=== PATIENT | female | born 1985 | race Caucasian/White ===

== ENCOUNTER → 2017-12-11 | Outpatient (CLI) | payer OTHER ==
[~2017-12-11] MED LIST: ALB18R INH; BARIUM SULFATE 176 GM BTL PO ONE; BARIUM SULFATE 340 GM POWD ONE; DEXL60CA6 PO; RANI-366 PO; [UNRECOGNIZED DRUG - SUPPLY]
--- NOTE | 2017-12-11 12:27 | RADIOLOGY IMAGING REPORT ---
FACILITY: [facility] PATIENT NAME: Kemi Parker : 1985 MR: [id number] V: [id number] EXAM DATE: ORDERING PHYSICIAN: TOSHA ENG TECHNOLOGIST: Location: [facility] Patient: Kemi Parker : 1985 Visit/Account:[id number] Date of Sevice: 12/11/2017 Exam type: ESOPHAGRAM History: Cervical dysphagia Comparison: None. Findings: Double contrast esophagram was performed with thick and thin barium and air contrast. There is a dylan y small hiatal hernia present no evidence of mucosal erosion or esophageal stricture. There was a mi ld amount of gastroesophageal reflux observed. The fluoroscopy dose area product was not recorded IMPRESSION: 1. Very small hiatal hernia with a small amount of gastroesophageal reflux. Report Dictated By: Ernestina Galeana MD at 12/11/2017 12:19 PM Report E-Signed By: Ernestina Galeana MD at 12/11/2017 12:22 PM WSN:[email or web address]
== END ==
LOC: RAD 06:49
PROVIDERS: ATTEND Emergency Medicine
DX: K44.9 Diaphragmatic hernia without obstruction or gangrene (principal); K21.9 Gastro-esophageal reflux disease without esophagitis
CPT/HCPCS: 74220